=== PATIENT | male | born 1965 | race Caucasian/White ===

== ENCOUNTER 2020-11-07 14:50 | Outpatient (CLI) | payer OTHER, SELFPAY ==
--- NOTE | ~2020-11-07 | XR_ITS ---
EXAMINATION: XR pelvis min 3V DATE: 11/07/2020 15:41 INDICATION: Low back and pelvic pain post fall TECHNIQUE: Anteroposterior and left and right oblique views of the pelvis were obtained. COMPARISON: None. FINDINGS: Alignment is normal. No fracture. Bilateral hip and sacroiliac joint spaces are normal. Small entheso phytes along the anterior iliac crests. Multiple phleboliths in the pelvis. IMPRESSION: 1. No acute osseous abnormality. Reviewed, dictated and finalized at location A. [employer]
--- NOTE | ~2020-11-07 | XR_ITS ---
EXAMINATION: XR lumbar spine 2-3V DATE: 11/07/2020 15:41 INDICATION: Low back and pelvic pain post fall TECHNIQUE: Anteroposterior and lateral views of the lumbar spine, and cone-down lateral view of the l umbosacral junction were obtained. COMPARISON: None. FINDINGS: 3 mm retrolisthesis L4 on L5. Alignment is otherwise normal. Vertebral body heights are normal. Mild disc height loss at L1-L2, L4-L5 and a few levels in the lower thoracic spine. Moderate bilateral fac et osteoarthritis at L5-S1 with mild facet osteoarthritis and more cephalad lumbar spine. Visualized posterior sulci of the lungs are clear. IMPRESSION: 1. Mild lumbar spondylosis with 3 mm retrolisthesis L4 on L5. Reviewed, dictated and finalized at location A. [employer]
[2020-11-07 15:47] LABS: Add Urine Microscopic? YES; Appearance Urine Clear (Clear); Bilirubin Urine Negative (Negative); Blood Urine Negative (Negative); Color Urine Yellow (Yellow); Glucose Urine UA 3+ (Negative); Ketones Urine Negative (Negative); Leukocyte Esterase Ur Negative (Negative); Nitrate Urine Negative (Negative); Protein Urine Negative (Negative); Specific Grav Ur 1.025 (1.010-1.020); Urobilinogen Urine 0.2 mg/dL (0.2-1.0); pH Urine 5.5 (5.0-8.0)
[2020-11-07 15:49] LABS: Basophils Absolute Auto 0.02 K/mm3 (0.00-0.10); Basophils Percent Auto 0.4 % (0.0-1.0); Eosinophils Absolute Auto 0.07 K/mm3 (0.02-0.50); Eosinophils Percent Auto 1.4 % (1.0-6.0); Hematocrit 43.6 % (40.0-54.0); Hemoglobin 14.7 g/dL (14.0-18.0); Immature Granulocyte Absolute 0.02 K/mm3 (0.00-0.00); Immature Granulocyte Percent A 0.4 % (0.0-0.0); Lymphocytes Absolute Auto 1.14 K/mm3 (1.10-4.50); Lymphocytes Percent Auto 22.2 % (18.0-42.0); Mean Corpuscular HGB Conc 33.7 g/dL (32.0-36.0); Mean Corpuscular Hemoglobin 29.8 pg (27.0-31.0); Mean Corpuscular Volume 88.3 fL (78.0-102.0); Mean Platelet Volume 9.6 fl (8.7-11.0); Monocytes Absolute Auto 0.41 K/mm3 (0.10-0.90); Neutrophils Absolute Auto 3.5 K/mm3 (1.7-7.2); Neutrophils Percent Auto 67.6 % (50.0-70.0); Platelet Count Result 140 K/mm3 (150-420); Red Blood Count 4.94 M/mm3 (4.70-6.10); Red Cell Distribution Width 12.6 % (11.6-14.4); White Blood Count 5.1 K/mm3 (4.8-10.8)
[2020-11-07 16:05] LABS: Bacteria Urine Trace /hpf; RBC Urine 0-2 /hpf (0-2); WBC Urine 0-3 /hpf (0-3)
[2020-11-07 16:18] LABS: Hemoglobin A1C 7.7 % (<5.7)
[2020-11-07 17:06] LABS: Alanine Aminotransferase 56 U/L (16-63); Albumin Level 4.3 g/dL (3.4-5.0); Alkaline Phosphatase 71 U/L (46-116); Anion Gap 11 mmol/L (8-16); Aspartate Amino Transferase 25 U/L (15-37); Bilirubin,Total 0.5 mg/dL (0.00-1.00); Blood Urea Nitrogen 18 mg/dL (7-18); Calcium 8.8 mg/dL (8.5-10.1); Carbon Dioxide 27 mmol/L (21-32); Chloride 103 mmol/L (98-108); Estimated Glomerular Filt Rate > 60; Glucose 120 mg/dL (70-99); Osmolality Calculated 294 mOsm/kg (285-295); Sodium 141 mmol/L (136-145); Total Protein 6.9 g/dL (6.4-8.2)
[2020-11-07 17:39] LABS: Thyroid Stimulating Hormone Reflex 1.03 u/IU/mL (0.36-3.74)
== END 2020-11-07 14:51 | disposition home or self-care (01) ==
DX: E11.9 Type 2 diabetes mellitus without complications (principal); R42 Dizziness and giddiness; S39.92XA Unspecified injury of lower back, initial encounter
CPT/HCPCS: 36415; 72100; 72190; 80053; 81001; 83036; 84443; 85025; 87086; 87088